=== PATIENT | male | born 1995 | race Caucasian/White ===

== ENCOUNTER 2018-02-04 18:12 | Emergency (ER) | payer BC ==
[~2018-02-04] VITALS: Ht 660.3 cm; Wt 109.1 kg
[2018-02-04] MEDS ORDERED: ondansetron 4mg rapidly disintigrating tab PO ONE (19:05)
[2018-02-04] MEDS ORDERED: acetaminophen 325mg tablet PO ONE (19:05)
[2018-02-04] MEDS ORDERED: metoclopramide 5 mg/ml inj IV ONE (20:25)
[2018-02-04] MEDS ORDERED: normal saline 1000ML IV soln IVB ONE ×2 (20:25→20:30)
[2018-02-04] MEDS ORDERED: ketorolac trometh. 30mg/ml inj. IV ONE (20:25)
[2018-02-04] MEDS ORDERED: diphenhydrAMINE 50 mg/ml inj IV ONE (20:25)
[2018-02-04] MEDS ORDERED: morphine 4 MG/ML inj SYRINge IV ONE (20:25)
[2018-02-04] MEDS ORDERED: normal saline 1000ml 1,000 ML IV ONE (20:30)
[2018-02-04 20:52] LABS: BASOPHILS % (AUTO) 0 % (0-1); EOSINOPHILS % (AUTO) 0.1 % (0-6); HEMATOCRIT 45.8 % (42.0-52.0); HEMOGLOBIN 15.9 g/dl (14.0-17.9); LYMPHOCYTES # (AUTO) 1.3 X10'3 (1.1-4.8); LYMPHOCYTES % (AUTO) 12.3 % (21-51); MEAN CORPUSCULAR HEMOGLOBIN 29.9 PG (27.0-31.0); MEAN CORPUSCULAR HGB CONC 34.7 % (33.0-36.5); MEAN CORPUSCULAR VOLUME 86.2 FL (78-98); MEAN PLATELET VOLUME 8.4 FL (7.4-10.4); MONOCYTES # (AUTO) 0.4 X10'3 (0-0.9); MONOCYTES % (AUTO) 3.9 % (2-12); NEUTROPHILS # (AUTO) 8.7 X10'3 (1.8-7.7); NEUTROPHILS % (AUTO) 83.7 % (42-75); PLATELET COUNT 242 X10'3 (140-440); RED BLOOD COUNT 5.32 X10'6 (4.70-6.10); RED CELL DISTRIBUTION WIDTH 12.7 % (11.5-14.5); WHITE BLOOD COUNT 10.4 X10'3 (4.5-11.0)
[2018-02-04 21:03] LABS: ALANINE AMINOTRANSFERASE 25 U/L (12-78); ALBUMIN 4.7 G/DL (3.4-5.0); ALBUMIN/GLOBULIN RATIO 1.3 (1.1-1.5); ALKALINE PHOSPHATASE 109 IU/L (46-116); ANION GAP 7 (8-16); ASPARTATE AMINO TRANSFERASE 15 U/L (10-37); BLOOD UREA NITROGEN 20 MG/DL (7-18); BUN/CREATININE RATIO 16.1 (5.4-32.0); CALCIUM 9.5 MG/DL (8.5-10.1); CHLORIDE 104 MMOL/L (99-107); CREATININE 1.24 MG/DL (0.60-1.10); GLUCOSE 98 MG/DL (70-104); POTASSIUM 3.6 MMOL/L (3.5-5.1); SODIUM 139 MMOL/L (135-145); TOTAL CARBON DIOXIDE 27.6 MMOL/L (24-32); TOTAL PROTEIN 8.3 G/DL (6.4-8.2); eGFR 72 ML/MIN
[2018-02-04] MEDS ORDERED: ONDA4TAB12 PO (21:07)
[2018-02-04] MEDS ORDERED: HYDR-3965 PO (21:07)
[2018-02-04] MEDS ORDERED: CIPR10DR LEFT EAR (21:07)
[2018-02-04 21:10] LABS: INR 1.1 INR; PROTHROMBIN TIME 11.2 SECONDS (9.0-12.0)
[2018-02-04 21:52] VITALS: BP 124/63
== END 2018-02-04 22:12 | disposition home or self-care (01) ==
LOC: ER 18:13
DX: S09.22XA Traumatic rupture of left ear drum, initial encounter (principal); H53.9 Unspecified visual disturbance; Z79.899 Other long term (current) drug therapy; X58.XXXA Exposure to other specified factors, initial encounter; Y93.89 Activity, other specified; Y92.89 Other specified places as the place of occurrence of the external cause; Y99.8 Other external cause status
CPT/HCPCS: 36415; 70450; 80053; 85025; 85610; 96374; 96375; 99285; J1200; J1885; J2765; J7030